=== PATIENT | female | born 1985 | race Caucasian/White ===

== ENCOUNTER 2019-06-13 10:12 | Outpatient (CLI) | payer OTHER, SELFPAY ==
--- NOTE | 2019-06-13 10:30 | EST_ITS ---
Patient Info Name: Gaby Mendoza Age: 34 years : 1985 Gender: Female Ht: 70 in Wt: 170 lbs BSA: 1.96 m2 Exam Date: 06/13/2019 11:15 AM Exam Location: [facility] Stress Patient Status: Outpatient Admit Date: 06/13/2019 Staff Ordering Physician: Kiara Cardenas Attending Provider: Kiara Cardenas Exercise Technologist: Bryanna Marin RDCS Exercise Physician: Uriah Schaffer DO Exam Type: CA stress test treadmill Study Info Indications R07.9 - Chest pain, unspecified A treadmill exercise stress test was performed. Summary 1. 1. Negative Pop exercise stress test for ischemic ST changes by ECG criteria. 2. 2. Good functional capacity, achieving 12 METs of workload. 3. 3. Appropriate HR response to exercise. 4. 4. Appropriate HR recovery at 1 minute post exercise. 5. 5. No imaging with stress testing. 6. 6. Patient informed of the above results. Protocol: Pop Stress ECG Details Stage: REST Duration (min): 4 min : 45 sec Speed (mph): 0.0 Grade (%): 0 HR (bpm): 93 SBP (mmHg): 136 DBP (mmHg): 82 METS: --- Stage: REST Duration (min): 11 min : 41 sec Speed (mph): 0.0 Grade (%): 0 HR (bpm): 91 SBP (mmHg): 136 DBP (mmHg): 82 METS: --- Stage: STAGE 1 Duration (min): 1 min : 0 sec Speed (mph): 1.7 Grade (%): 10 HR (bpm): 119 SBP (mmHg): 136 DBP (mmHg): 82 METS: --- Stage: STAGE 1 Duration (min): 2 min : 0 sec Speed (mph): 1.7 Grade (%): 10 HR (bpm): 123 SBP (mmHg): 136 DBP (mmHg): 82 METS: --- Stage: STAGE 1 Duration (min): 3 min : 0 sec Speed (mph): 1.7 Grade (%): 10 HR (bpm): 135 SBP (mmHg): 154 DBP (mmHg): 83 METS: --- Stage: STAGE 2 Duration (min): 1 min : 0 sec Speed (mph): 2.5 Grade (%): 12 HR (bpm): 134 SBP (mmHg): 154 DBP (mmHg): 83 METS: --- Stage: STAGE 2 Duration (min): 2 min : 0 sec Speed (mph): 2.5 Grade (%): 12 HR (bpm): 140 SBP (mmHg): 148 DBP (mmHg): 82 METS: --- Stage: STAGE 2 Duration (min): 3 min : 0 sec Speed (mph): 2.5 Grade (%): 12 HR (bpm): 144 SBP (mmHg): 148 DBP (mmHg): 82 METS: --- Stage: STAGE 3 Duration (min): 1 min : 0 sec Speed (mph): 3.4 Grade (%): 14 HR (bpm): 151 SBP (mmHg): 149 DBP (mmHg): 95 METS: --- Stage: STAGE 3 Duration (min): 2 min : 0 sec Speed (mph): 3.4 Grade (%): 14 HR (bpm): 158 SBP (mmHg): 149 DBP (mmHg): 95 METS: --- Stage: STAGE 3 Duration (min): 3 min : 0 sec Speed (mph): 3.4 Grade (%): 14 HR (bpm): 160 SBP (mmHg): 160 DBP (mmHg): 72 METS: --- Stage: STAGE 4 Duration (min): 1 min : 0 sec Speed (mph): 4.2 Grade (%): 16 HR (bpm): 172 SBP (mmHg): 160 DBP (mmHg): 72 METS: --- Stage: STAGE 4 Duration (min): 2 min : 0 sec Shasha
== END 2019-06-13 10:13 | disposition home or self-care (01) ==
PROVIDERS: PCP Family Medicine; Visit Provider Physician Assistant Medical
DX: R07.89 Other chest pain (principal)
CPT/HCPCS: 93017

== ENCOUNTER 2020-09-17 14:20 | Outpatient (CLI) | payer OTHER, SELFPAY ==
[2020-09-17 14:53] VITALS: BP 123/77; PULSE 99
[2020-09-17] MEDS: FLUCONAZOLE 150 MG TABLET PO (14:55)
[2020-09-17 15:16] LABS: Basophils Percent Auto 0.2 % (0.2-1.2); Eosinophils Absolute Auto 0.1 K/mm3 (0-0.3); Eosinophils Percent Auto 0.6 % (0-4.4); Hematocrit 32.5 % (37.0-47.0); Hemoglobin 10.5 g/dL (12.0-15.0); Immature Granulocyte Absolute 0.04 K/mm3 (0.00-0.031); Immature Granulocyte Percent A 0.4 % (0-0.5); Lymphocytes Percent Auto 20.4 % (18.3-44.2); Mean Corpuscular HGB Conc 32.3 g/dl (32-36); Mean Corpuscular Hemoglobin 29.3 pg (26-34); Mean Corpuscular Volume 90.8 fl (80-100); Monocytes Absolute Auto 0.7 K/mm3 (0.1-0.6); Monocytes Percent Auto 6.9 % (2.6-8.5); Neutrophils Percent Auto 71.5 % (45.5-73.1); Platelet Count Result 209 k/mm3 (150-375); Red Blood Count 3.58 M/mm3 (4.2-5.4); Red Cell Distribution Width 12.4 % (11.5-14.5); White Blood Count 9.8 K/mm3 (4.5-10.0)
[2020-09-17 15:27] LABS: Alanine Aminotransferase 15 U/L (4-35); Albumin Level 3.4 g/dL (3.5-5.1); Alkaline Phosphatase 166 U/L (38-126); Anion Gap 7 mmol/L (8-16); Aspartate Amino Transferase 27 U/L (14-36); Bilirubin,Total 0.5 mg/dL (0.2-1.3); Blood Urea Nitrogen 6 mg/dL (7-17); Calcium 8.5 mg/dL (8.4-10.2); Carbon Dioxide 21 mmol/L (22-30); Chloride 108 mmol/L (98-107); Estimated Glomerular Filt Rate > 60; Glucose 79 mg/dL (65-105); Potassium 3.8 mmol/L (3.4-5.0); Sodium 136 mmol/L (137-145); Uric Acid 3.6 mg/dL (2.5-7.5)
[2020-09-17 15:30] VITALS: BP 114/72; PULSE 90
== END 2020-09-17 15:42 | disposition home or self-care (01) ==
LOC: ANHOBOP 14:29 → ANHOBPP 14:32
PROVIDERS: Obstetrics & Gynecology; PCP Family Medicine; Visit Provider Obstetrics & Gynecology
DX: O13.3 Gestational [pregnancy-induced] hypertension without significant proteinuria, third trimester (principal); Z3A.40 40 weeks gestation of pregnancy
CPT/HCPCS: 36415; 59025; 80053; 84550; 85025; 99199; A9270

== ENCOUNTER 2020-10-01 05:55 | Inpatient (IN) | payer OTHER, SELFPAY ==
[2020-10-01] VITALS (90 sets, daily range): BP systolic 88–190; BP diastolic 16–128; PULSE 36–148; RESP 16; TEMP 36.3–36.9; O2SAT 79–100; BMI 30.2
--- OUTSIDE RECORDS SUMMARY | 2020-10-01 06:00 | XMS_ITS | Encounter Summary ---
:1985 Author Care Team Providers Name Role Phone Faustino Sherman MD Primary Care Provider [phone] Reason for Visit OB visit OB [id number] EDC 10/02/2020 LMP 12/26/2019 Assessment and Plan Assessment Note Patient is __29_weeks . Dis cussed plan. 1. Routine care Discussion Note: None recorded.Patient educational handouts: No information available. Plan of Care Reminders Provider Appointments None ? ? recorded. Lab None ? ? recorded. Referral None ? ? recorded. Procedures None ? ? recorded. Surgeries None ? ? recorded. Imaging None ? ? recorded. Medications Name Start Date ? ? ? Medications Administered None recorded. Vitals Height Weight BMI Blood Pressure 5 ft 10.5 in 195 lbs 27.6 kg/m2 128/72 mm[Hg] Results Lab Results None recorded. Allergies Code Code System Name Reaction Severity Onset NKDA ? ? ? Problems Name Status Onset Date Source ? Anxiety Active 02/27/2020 ? Depressive Disorder Active
--- OUTSIDE RECORDS SUMMARY | 2020-10-01 06:00 | XMS_ITS | Encounter Summary ---
:1985 Author Care Team Providers Name Role Phone Faustino Sherman MD Primary Care Provider [phone] Reason for Visit OB visit OB [id number] EDC 10/02/2020 LMP 12/26/2019 Assessment and Plan Assessment Note 35 weeks gestation Patient is __36_weeks . Discuss ed plan. 1. Routine care Discussion Note: None [...] BMI Blood Pressure 5 ft 10.5 in 205 lbs 29 kg/m2 132/80 mm[Hg] Results Lab Results None recorded. Allergies Code Code System Name Reaction Severity Onset NKDA ? ? ? Problems Name Status Onset Date Source ? Anxiety Active
--- OUTSIDE RECORDS SUMMARY | 2020-10-01 06:00 | XMS_ITS ---
:1985 Author Care Team Providers Name Role Phone DINORAH UPTON MD Primary Care Provider [phone] Allergies Code Code System Name Reaction Severity Status Onset NKDA ? Medications Name Status Start Date Stop Date ? ? Cytotec 200 mcg tablet Completed 06/11/2017 8 insert 4 by by vagina route all at once escitalopram 10 mg tablet Completed ? 2019 TK 1 T PO D Flagyl 500 mg tablet Completed 12/27/2018 04/23/2020 take 1 tablet by oral route every 12 hours Gianvi (28) 3 mg-0.02 mg tablet Completed 09/29/2013 11/11/2013 TAKE 1 TABLET BY ORAL ROUTE EVERY DAY Reclipsen (28) 0.15 mg-0.03 mg tablet Active 12/27/2018 Not available take 1 tablet by oral route every day Lomedia 24 Fe 1 mg-20 mcg (24)/75 mg (4) tablet Completed 11/11/2013 01/04/2017 take 1 tablet by oral route every day Active ? Not available Problems Name Status Onset Date Source ? Screening for Malignant Neoplasm of Unknown 11/04/2012 History Cervix Cytologic Finding Unknown 01/01/2013 History Adult Health Examination Unknown 11/11/2013 History Specialized Medical Examination Unknown 11/11/2013 History Test Negative Unknown 11/13/[address] Concept Unknown 11/17/2015 History Secondary Amenorrhea Unknown 05/25/2017 History Threatened Miscarriage Unknown 06/06/2017 History Missed Miscarriage Unknown 06/11/2017 History Gestation Less than 9 Weeks Unknown 06/13/2017 Hist ory
--- OUTSIDE RECORDS SUMMARY | 2020-10-01 06:00 | XMS_ITS | Encounter Summary ---
:1985 Author Care Team Providers Name Role Phone Faustino Sherman MD Primary Care Provider [phone] Reason for Visit OB visit Assessment and Plan 1. Elevated blood-pressure readi ng without diagnosis of hypertension 2. Routine care Discussion Note: None recorded.Patient educational [...] BMI Blood Pressure 5 ft 10.5 in 207 lbs 29.3 kg/m2 (1) 145/84 mm[H g] (2) 140/82 mm[Hg ] Results Lab Results None recorded. Allergies Code Code System Name Reaction Severity Onset NKDA ? ? ? Problems Name Status Onset Date Source ? Anxiety Active 02/27/2020 ? Depressive Disorder Active 02/27/2020 ?
--- OUTSIDE RECORDS SUMMARY | 2020-10-01 06:00 | XMS_ITS | Encounter Summary ---
:1985 Author Care Team Providers Name Role Phone Faustinojeff Sherman MD Primary Care Provider [phone] Reason for Visit OB visit OB [id number] EDC 10/02/2020 LMP 12/26/2019 Assessment and Plan Assessment Note Patient is 36___weeks . Dis cussed plan. 1. Routine care [...] ft 10.5 in 207 lbs 29.3 kg/m2 127/78 mm[Hg] Results Lab Results None recorded. Allergies Code Code System Name Reaction Severity Onset NKDA ? ? ? Problems Name Status Onset Date Source ? Anxiety Active 02/27/2020 ? Depressive Disorder Active
--- OUTSIDE RECORDS SUMMARY | 2020-10-01 06:00 | XMS_ITS | Encounter Summary ---
:1985 Author Care Team Providers Name Role Phone Faustino Sherman MD Primary Care Provider [phone] Reason for Visit None recorded. Assessment and Plan 1. Uterine size for dates discre pancy ? US, obstetric, follow-up Discussion Note: None recorded.Patient educational handouts: No information available. Plan of Care Reminders Provider Appointments None ? ? recorded. Lab None ? ? recorded. Referral None ? ? recorded. Procedures None ? ? recorded. Surgeries None ? ? recorded. Imaging US, 08/20/2020 [facility], Follow-up Medications Name Start Date ? ? ? Medications Administered None recorded. Vitals None recorded. Results Lab Results None recorded. Allergies Code Code System Name Reaction Severity Onset NKDA ? ? ? Problems Name Status Onset Date Source ? Anxiety Active 02/27/2020 ? Depressive Disorder Active 02/27/2020 ? Active 03/26/2020 ? Procedures Date Name Performed by ?
--- OUTSIDE RECORDS SUMMARY | 2020-10-01 06:00 | XMS_ITS | Encounter Summary ---
:1985 Author Care Team Providers Name Role Phone Faustinojeff Sherman MD Primary Care Provider [phone] Reason for Visit OB visit OB [id number] EDC 10/02/2020 LMP 12/26/2019 Assessment and Plan Assessment Note Patient is __31_weeks . Dis cussed plan. 1. Routine care [...] BMI Blood Pressure 5 ft 10.5 in 199 lbs 28.1 kg/m2 122/80 mm[Hg] Results Lab Results None recorded. Allergies Code Code System Name Reaction Severity Onset NKDA ? ? ? Problems Name Status Onset Date Source ? Anxiety Active 02/27/2020 ? Depressive Disorder Active
[2020-10-01 06:59] LABS: Basophils Percent Auto 0.3 % (0.2-1.2); Eosinophils Absolute Auto 0.1 K/mm3 (0-0.3); Eosinophils Percent Auto 0.8 % (0-4.4); Hematocrit 40.9 % (37.0-47.0); Immature Granulocyte Absolute 0.03 K/mm3 (0.00-0.031); Immature Granulocyte Percent A 0.3 % (0-0.5); Lymphocytes Absolute Auto 2.12 K/mm3 (0.9-3.2); Lymphocytes Percent Auto 24.7 % (18.3-44.2); Mean Corpuscular HGB Conc 31.8 g/dl (32-36); Mean Corpuscular Hemoglobin 28.7 pg (26-34); Mean Corpuscular Volume 90.3 fl (80-100); Monocytes Absolute Auto 0.6 K/mm3 (0.1-0.6); Monocytes Percent Auto 7.3 % (2.6-8.5); Neutrophils Absolute Auto 5.7 K/mm3 (1.3-6.7); Neutrophils Percent Auto 66.6 % (45.5-73.1); Platelet Count Result 226 k/mm3 (150-375); Red Blood Count 4.53 M/mm3 (4.2-5.4); Red Cell Distribution Width 12.7 % (11.5-14.5); White Blood Count 8.6 K/mm3 (4.5-10.0)
[2020-10-01] MEDS: AMPICILLIN 2 GM/NS 100 ML 2 GM/100 ML BAG IVPB (07:21)
[2020-10-01] MEDS: OXYTOCIN 30 UNITS/NS 500 ML 30 UNITS/500 ML BAG IV CONT (07:22)
[2020-10-01] MEDS: LACTATED RINGERS 1,000 ML 125 ML IV CONT ×2 (07:22→14:51)
--- NOTE | 2020-10-01 07:22 | P.PNAN_ITS ---
Anes - Eval Pre Procedure Procedure: labor pain management Date/Time: 10/01/20 07:22 Surgeon: Johana Preop Diagnosis: Pain during labor Pre Op Diagnosis: IOL Patient Data Age: 35 Gender: F Height: Weight: Last Vital Signs Pulse 98 10/01/20 07:15 BP 117/76 10/01/20 07:15 Allergies Allergy/AdvReac Type Severity Reaction Status Date / Time No Known Allergies Allergy Verified 06/06/19 09:04 Home Medications Medication Instructions Recorded Confirmed Type escitalopram oxalate 10 mg tablet 10 mg PO DAILY #30 tablet 01/19/20 Rx Laboratory Tests 10/01/20 10/01/20 06:51 06:51 WBC 8.6 K/mm3 K/mm3 (4.5-10.0) RBC 4.53 M/mm3 M/mm3 (4.2-5.4) Hgb 13.0 g/dL g/dL (12.0-15.0) Hct 40.9 % % (37.0-47.0) MCV 90.3 fl fl (80-100) MCH 28.7 pg pg (26-34) MCHC 31.8 g/dl L g/dl (32-36) RDW 12.7 % % (11.5-14.5) Plt Count 226 k/mm3 k/mm3 (150-375) MPV 11.0 fl H fl (7.4-10.4) Immature Gran % (Auto) 0.3 % % (0-0.5) Neut % (Auto) 66.6 % % (45.5-73.1) Lymph % (Auto) 24.7 % % (18.3-44.2) Garvin % (Auto) 7.3 % % (2.6-8.5) Eos % (Auto) 0.8 % % (0-4.4) Baso % (Auto) 0.3 % % (0.2-1.2) Lymph # (Auto) 2.12 K/mm3 K/mm3 (0.9-3.2) Garvin # (Auto) 0.6 K/mm3 K/mm3 (0.1-0.6) Eos # (Auto) 0.1 K/mm3 K/mm3 (0-0.3) Baso # (Auto) 0.0 K/mm3 K/mm3 (0.0-0.1) Abs Immat Gran (auto) 0.03 K/mm3 K/mm3 (0.00-0.031) Absolute Neuts (auto) 5.7 K/mm3 K/mm3 (1.3-6.7) Absolute Nucleated RBC 0.0 K/mm3 K/mm3 (0.0-0.012) Nucleated RBC % 0.0 % % (0.0-0.2) RPR Pending Patient hx anesthesia problems: none Family hx anesthesia problems: none [facility] Past Medical History Medical History (Updated 10/01/20 @ 07:25 by Briseyda Larkin CRNA) Pain during labor Family History Family History (Updated 09/11/20 @ 13:05 by Violette Delgadillo RN) Other No pertinent family history Social History Social History Smoking status: Never smoker Alcohol intake: current Substance use: never Gender identity (if verbalized by the patient): Female Sexual Orientation (if Verbalized by the Patient): Straight or Heterosexual Spiritual care concerns: No Exam Day of Procedure 10/01/20 07:22
--- NOTE | 2020-10-01 07:28 | WPDOBADMIT ---
Obstetrics - Admit Note Admission Note: record reviewed. No pertinent additions to the history and/or any subsequent changes in the physical findings that are not consistent with the expected course of the were found. IOL at 39.6 weeks, GBS+, SVE 1-2/60/-2, AROM small amount of clear odorless fluid Additions to the history and/or subsequent changes in the physical findings follow. None.
[2020-10-01 08:24] LABS: Rapid Plasma Reagin Non-Reactive (NonReactive)
[2020-10-01] MEDS: AMPICILLIN 1 GM/NS 50 ML 1 GM/50 ML BAG IVPB ×2 (11:41→15:38)
[2020-10-01] MEDS: ONDANSETRON INJ 4 MG/2 ML VIAL IV PUSH (15:42)
[2020-10-01] MEDS: SODIUM CHLORIDE 0.9% IV 1,000 ML 150 ML I-UTERINE (16:17)
--- NOTE | 2020-10-01 17:16 | PM.OBPRVD ---
OB - Delivery Note Procedure Delivery date: 10/01/20 Procedure: vaginal delivery Intrapartal events: None Induction method: AROM and per pitocin protocol Delivery monitor: external FHT and external uterine Route of delivery: Laceration Description: Perineal - 2nd Degree Delivery repair: vicryl Specimen: No Quantitative Blood Loss (ml): 135 Anesthesia type: Epidural Disposition: floor [facility] Date of : 10/01/20 Time of : 17:01 Weeks of gestation at delivery: 39 Weight (pounds): 8 Weight (ounces): 6 presentation: vertex position: Left Occiput Transverse Placenta delivery description: Spontaneous cord vessel description: 3 Vessels, Clamped/Cut and Delayed Cord Clamping score one minute: 9 score five minutes: 9 Narrative: mother and baby in stable condition, skin to skin
[2020-10-01] MEDS: DIBUCAINE 1% OINTMENT 30 GM TUBE 1 APPLIC TOPICAL (17:42)
[2020-10-01] MEDS: OXYTOCIN 30 UNITS/NS 500 ML 30 UNITS/500 ML BAG 125 UNITS IV CONT (17:42)
[2020-10-01] MEDS: WITCH HAZEL 40 PADS 1 PAD TOPICAL (17:44)
--- NOTE | 2020-10-01 21:49 | PC.NURSE ---
This patient, Gaby Mendoza, was received from Labor and Delivery on 10/01/20 at 2045. Patient/family oriented to unit policies and routines
[2020-10-02] VITALS (7 sets, daily range): BP systolic 101–116; BP diastolic 62–75; PULSE 64–99; RESP 16–18; TEMP 36.2–36.7; O2SAT 96–100
[2020-10-02] MEDS: IBUPROFEN 600 MG TABLET PO ×4 (03:58→23:40)
[2020-10-02 05:19] LABS: Hematocrit 33.5 % (37.0-47.0); Hemoglobin 10.9 g/dL (12.0-15.0)
--- NOTE | 2020-10-02 10:09 | PM.OBPNVD ---
OB - PN: Subj Subjective Date/time seen: 10/02/20 10:09 Patient comments: no complaints baby status: doing well OB - PN: Obj Data Labs CBC & Chem 7: 10/02/20 04:02 Labs: Laboratory Results - last 24 hr 10/02/20 04:02 Hgb 10.9 L Hct 33.5 L OB - PN A/P Plan day: 1 Plan: routine care Time Spent With Patient Time: Total time spent is greater than 50% in coordination of care (as documented) at patient's floor/unit and/or counseling patient: Time with patient: less than 15 minutes Review of Systems Review of Systems: All systems reviewed & are unremarkable except as noted in HPI and below Exam Narrative: Exam Narrative: Fundus firm and vaginal flow controlled. No lower ext redness, warmth, or edema. Negative homans. Const: General: comfortable Chest: Breast/axilla inspection: normal inspection of the breasts Resp: Effort & Inspection: normal respiratory effort Cardio: Rate: regular rate GI: GI Palp: Yes Soft to palpation Psych: Appearance: grossly normal Affect: normal affect Attitude: cooperative Thought content: Yes Normal thought content present Judgement: Good judgement present (Psych)
[2020-10-02] MEDS: MULTIVIT/MIN/PREN/FOL AC/IRON TABLET 1 TAB PO (11:14)
[2020-10-02] MEDS: DOCUSATE SODIUM 100 MG CAPSULE PO ×2 (11:16→23:40)
--- NOTE | 2020-10-02 13:31 | WPDANLDPN2 ---
Anes-Prog Note L&D Date/Time: 10/02/20 13:31 Comfortable throughout: section Neuraxial method: spinal Epidural/Spinal procedure site: clean & non-tender Neuro status: Neuro function grossly intact. Cardiovascular status: normal Respiratory status: normal Airway patency: baseline Mental status: baseline Post-Op hydration status: normal Vital Signs: Last Vital Signs Temp 36.4 C 10/02/20 12:31 Pulse 95 10/02/20 12:31 Resp 16 10/02/20 12:31 BP 111/69 10/02/20 12:31 Pulse Ox 96 10/02/20 12:31 Pain score (VAS): 0 I/O: Intake & Output 10/01/20 10/02/20 10/02/20 23:59 07:59 15:59 Intake Total 1350 Output Total 78 Balance 1272 Post-procedural complaints: none Patient feedback: Patient satisfied with anesthetic care.
--- NOTE | 2020-10-02 13:32 | WPDANLDNPN2 ---
Anes-Prog Note L&D-Neuraxial Date/Time: 10/02/20 13:32 Neuraxial medications: intrathecal PF morphine Opiod-related complaints: none Patient feedback: Patient satisfied with post-operative pain management.
--- NOTE | 2020-10-02 13:36 | WPDANLDPN2 ---
Anes-Prog Note L&D Date/Time: 10/02/20 13:36 Comfortable throughout: labor and delivery Neuraxial method: epidural Epidural/Spinal procedure site: clean & non-tender Neuro status: Neuro function grossly intact. Cardiovascular status: normal Respiratory status: normal Airway patency: baseline Mental status: baseline Post-Op hydration status: normal Vital Signs: Last Vital Signs Temp 36.4 C 10/02/20 12:31 Pulse 95 10/02/20 12:31 Resp 16 10/02/20 12:31 BP 111/69 10/02/20 12:31 Pulse Ox 96 10/02/20 12:31 Pain score (VAS): 0 I/O: Intake & Output 10/01/20 10/02/20 10/02/20 23:59 07:59 15:59 Intake Total 1350 Output Total 78 Balance 1272 Post-procedural complaints: none Patient feedback: Patient satisfied with anesthetic care.
--- NOTE | 2020-10-03 09:28 | PM.OBPNVD ---
OB - PN: Subj Subjective Date/time seen: 10/03/20 09:28 Patient comments: no complaints baby status: doing well OB - PN: Obj Data Labs CBC & Chem 7: 10/02/20 04:02 OB - PN A/P Plan day: 2 Plan: routine care and discharge home (F/U in 4 weeks) Time Spent With Patient Time: Total time spent is greater than 50% in coordination of care (as documented) at patient's floor/unit and/or counseling patient: Time with patient: less than 15 minutes Review of Systems Review of Systems: All systems reviewed & are unremarkable except as noted in HPI and below Exam Narrative: Exam Narrative: Fundus firm and vaginal flow controlled. No lower ext redness, warmth, or edema. Negative homans. Const: General: comfortable Chest: Breast/axilla inspection: normal inspection of the breasts Resp: Effort & Inspection: normal respiratory effort Cardio: Rate: regular rate GI: GI Palp: Yes Soft to palpation Psych: Appearance: grossly normal Affect: normal affect Attitude: cooperative Thought content: Yes Normal thought content present Judgement: Good judgement present (Psych)
[2020-10-03 09:30] VITALS: BP 112/64; PULSE 81; PULSE 99; RESP 18; RESP 20; TEMP 36.4; O2SAT 95; O2SAT 98
[2020-10-03] MEDS: IBUPROFEN 600 MG TABLET PO (09:54)
[2020-10-03] MEDS: MULTIVIT/MIN/PREN/FOL AC/IRON TABLET 1 TAB PO (09:55)
[2020-10-03] MEDS: DOCUSATE SODIUM 100 MG CAPSULE PO (09:55)
[2020-10-05 10:49] VITALS: BP 126/79; PULSE 92; RESP 16; TEMP 36.6; O2SAT 100
--- NOTE | 2020-10-25 12:40 | PM.OBDSVD ---
DS: Admitting Diagnosis Admitting Diagnosis Admitting Diagnosis: Labor OB - DS: Summary OB Procedures : None OB Procedures Intrapartum: Spontaneous Vag Delivery OB Procedures: : None Time Spent with Patient Time attestation: Total time spent providing and/or coordinating discharge services: Discharge Plan Discharge Attending physician on discharge: Buffy Palencia Consulting providers: Buffy Palencia ; Jade Quesada Discharging Clinician: Jade Quesada Patient Disposition: Home, Self-Care Activity: may shower, no straining and pelvic rest Diet: regular Discharge Instructions: Education: Mom and Baby Guide Given to: Mother Follow-Up: Call your delivering provider's office for an appointment to be seen in: 4 weeks Mom and baby should come to the [facility] for the follow-up appointment. Appointment Date/Time: October 05, 2020 at 11:00 am What to expect at your follow-up visit: Blood Pressure Check Physical Assessment Call [phone] if you are unable to keep your appointment time. EPISIOTOMY/PERINEAL CARE: * Until bleeding stops, use your juan pablo bottle after urinating * Change your pad frequently throughout the day * No tub baths until seen by your physician - You may shower ACTIVITY: * Rest as much as possible. * Do not exercise or lift anything heavier than your baby (such as laundry or other children.) * Avoid stairs or driving as much as possible. * Do not put anything into the vagina. No douching, tampons, or sexual activity until seen by physician. NOTIFY PHYSICIAN IF YOU HAVE ANY QUESTIONS OR IF ANY OF THE FOLLOWING SYMPTOMS OCCUR: * If your vaginal area becomes red, swollen, or more painful than what you have experienced in the hospital. * If your vaginal bleeding becomes foul smelling. * If your vaginal bleeding becomes more heavy than a period or if your bleeding changes from pink to bright red. However, you may pass an occasional walnut-sized clot once or twice for the first week . * If you experience a sharp, shooting pain in your calves. * If you discover a hard, reddened area on your breast or if you experience flu-like symptoms. DIET: * Eat regular, well-balanced meals. * Drink plenty of fluids daily. Patient Instructions: Vaginal Delivery (DC) Stand Alone Forms: General Discharge Information Follow-up/Referrals: Jade Quesada CNM [Certified Nurse Technical Communicator] - Discharge Medications: Continued escitalopram oxalate [Lexapro] 10 mg tablet 10 mg PO DAILY Qty: 30 RF: 3 Date of admission: 10/01/20 05:55 Primary Care Provider: Faustino Sherman Admitting Provider: Johanna Vaughn Attending physician on admission: Johanna Vaughn Condition: Stable
== END 2020-10-03 13:25 | disposition home or self-care (01) | DRG 807 ==
LOC: ANHLDR 05:59 → ANHOB2 21:56
PROVIDERS: Advanced Practice Midwife; Admitting Provider Obstetrics & Gynecology; PCP Family Medicine; Visit Provider Obstetrics & Gynecology
DX: O99.824 Streptococcus B carrier state complicating childbirth (principal); Z37.0 Single live birth; Z3A.39 39 weeks gestation of pregnancy; O70.1 Second degree perineal laceration during delivery; O99.344 Other mental disorders complicating childbirth; F41.9 Anxiety disorder, unspecified; F32.9 Major depressive disorder, single episode, unspecified
CPT/HCPCS: 36415; 85014; 85018; 85025; 86592; 86850; 86900; 86901; A9270; J0290; J2405; J2590; J2795; J7030; J7120

== ENCOUNTER 2024-04-07 13:24 | Outpatient (CLI) | payer OTHER, SELFPAY ==
--- NOTE | ~2024-04-07 | XR_ITS ---
3 VIEWS LUMBAR SPINE Ordering provider: Sujatha Rivera APRN History: . M54.50 - Low back pain, unspecified . Comparison: None. FINDINGS: VERTEBRAL BODIES: No visible fracture or subluxation. DISK SPACES: Normal. SOFT TISSUES: Normal. IMPRESSION: No acute osseous abnormality lumbar spine. Reviewed, dictated and finalized at location A. OID ARCHITECT
--- NOTE | ~2024-04-07 | XR_ITS ---
XR hip RT min 2V Ordering provider: Sujatha Rivera APRN History: . M54.50 - Low back pain, unspecified . Comparison: None. FINDINGS: BONES: No acute fracture or dislocation. HIP JOINT SPACES: Normal. PUBIC SYMPHYSIS: Normal. SOFT TISSUES: Normal. IMPRESSION: No acute osseous abnormality pelvis and right hip. Reviewed, dictated and finalized at location A. [employer] INST[employer]ER
== END 2024-04-07 13:25 | disposition home or self-care (01) ==
LOC: GOSHIMG 13:26
PROVIDERS: PCP Nurse Practitioner Adult Health; Visit Provider Nurse Practitioner Adult Health
DX: M54.50 Low back pain, unspecified (principal)
CPT/HCPCS: 72100; 73502

== ENCOUNTER 2024-05-07 14:37 | Outpatient (CLI) | payer OTHER, SELFPAY ==
--- OUTSIDE RECORDS SUMMARY | 2024-05-09 02:20 | XMS_ITS | Data Portability ---
Author Organization [facility] [place] Address [address] [place] [address] Care Team Providers Care Equipment Records Supervisor Name Role Phone DINORAH UPTON Primary Care Provider Assessment Encounter Date Assessment Date Assessment LastModified by Organization Details LastModified Time 09/24/2020 09/24/2020 Patient is _38__weeks . Discussed plan. Not available 09/24/2020 16:18:27 10/27/2020 10/27/2020 normal pp exam # 4 samples loloestrin to start when desires, ocp consent reviewed se risks, normal pp exam f/u nov for wwe Not available 10/27/2020 11:37:28 04/22/2021 04/22/2021 Annual gynecological exam performed. Patient will come back in a year unless there are new symptoms. Suggest Calcium with Vitamin D if not eating in diet. Patient advised to get annual flu shot. Recommend yearly physicals and preform monthly breast exams. Genetic testing is available for patients with family history of cancer. Engage in safe sexual practices, use condoms. Encouraged to have daily exercise. Avoid tobacco and illicit drugs, moderation of alcohol. If BMI greater than 25 dietary consult advised. If you have any questions please call or email. Not available 04/22/2021 16:31:43 08/04/2022 08/04/2022 Annual gynecological exam performed. Patient will come back in a year unless there are new symptoms. Suggest Calcium with Vitamin D if not eating in diet. Patient advised to get annual flu shot. Recommend yearly physicals and preform monthly breast exams. Genetic testing is available for patients with family history of cancer. Engage in safe sexual practices, use condoms. Encouraged to have daily exercise. Avoid tobacco and illicit drugs, moderation of alcohol. If BMI greater than 25 dietary consult advised. If you have any questions please call or email. Not available 08/04/2022 10:45:36 11/09/2023 11/09/2023 Annual gynecological exam performed. Patient will come back in a year unless there are new symptoms. Suggested Calcium with Vitamin D 1200-1500mg daily. Patient advised to get an annual flu shot in the fall and she could obtain at [facility] or [facility] care clinic. Also to obtain TDap vaccination if you have not had one in the last 10 years. Recommend yearly mammograms. Encouraged monthly self breast exams. Encourage safe sexual practices, to use condoms and limit partners if not already in a monogamous relationship. Engage in daily exercise of low impact aerobic exercise 45-60 minutes 4-5 times weekly. Avoid tobacco and illicit drugs as well as using moderation with alcohol intake less than 1-2 8 oz beverages daily. This lifestyle behavior pattern will lead to less health conditions and longer life span. If BMI greater than 25 weight watchers or dietary consult advised. All questions have been answered. Patient appears to understand information, but if you have any questions please call or respond to this email. Not available 11/09/2023 16:20:48 Plan of Treatment Reminders Order Date Submit Date Provider Last Modified By Organization Details Last Modified Time Details Appointments None record ed. Lab None record ed. Referral None record ed. Procedures None record ed. Surgeries None record ed. Imaging None record ed. Medication Orders None record ed. Patient TargetsNo targets recorded. Patient InstructionsNo instructions recorded. Reason for Referral None Reported. Results Created Date Observation Date Name Description Value Unit Range Abnormal Flag Note LastModifiedBy Organization Detail LastModifiedTime 09/04/19 21 09/03/2020 strep tococ cus group B, cultu re, unspe cifie d speci men result report SEE RESULT S BELOW abnormal Test: Cultu re: Group B Strep Scree n - Vagin al/Re ctal Speci men Sourc e: Vagin a/Rec selene Speci men Type: Vagin al/Re ctal Speci men Date: 2020 4:02 PM Resul t Date: 2020 6:46 PM Resul t Statu s: Final resul t Abnor mal: Yes Resul herman Lab: [facility] [address] [facility] [address] Tel: CULTU RE ----- ----- ----- --- Posit chiki for Strep tococ cus agala ctiae (Grou p B) (Abno rmal) Strep tococ cus agala ctiae (Beta strep Group B Strep ) remai ns unive rsall y susce ptibl e to penic illin , cefaz ashlie and vanco mycin . If clind amyci n is being consi dered for intra partu m proph ylaxi s, pleas e conta ct the lab and reque st susce ptibi lity testi ng. Not Available [facility] (Lab) [address], [place], [address], 09/10/2020 19:32:07 04/22/19 22 04/22/2021 IMAGE GUIDE D PAP AND HPV REGAR DLESS image guided Pap, HPV regardless of Pap result SEE RESULT S BELOW CASE REPOR T: Cytol ogy Gynec ologi hamlet Repor t Case: [id number] Autho paola g Provi zaid: Buffy Conteh, PAYTON Allen cted: 04/22 1526 Order ing Locat ion: [place] [facility] Recei michael: 04/23 0104 First Scree n: Janae Johnson, CT Speci men: Scree bassem Pap - Image d, Cervi x STATE MENT OF ADEQU ACY: Satis facto ry for evalu ation Trans forma tion zone compo nent prese nt FINAL DIAGN OSIS: Negat chiki for Intra epith elial Lesio n or Christine bansal (NIL) . Elect emir malhotra grace d by Janae Johnson, CT on 2021 at 7:03 AM ----- ----- ----- ----- ----- ----- ----- ----- ----- ----- ----- ----- ----- ----- ----- ----- ----- ---- HPV RESUL TS: HPV mRNA E6/E7 : No HPV mRNA Detec julita NOTE: This high risk HPV mRNA assay detec ts fourt een high- risk HPV types (16, 18, 31, 33, 35, 39, 45, 51, 52, 56, 58, 59, 66, 68) witho ut diffe renti ation . COMME NT: Note: This speci men was revie wed by a Cytot echno logis t and/o r Patho logis t (as indic ated in this repor t) after evalu ation using the Thinp rep Imagi ng Syste m. CLINI HAMLET INFOR MATIO N: Menst rual Statu s: LMP (if appli cable ): Clini hamlet Histo ry/Pr eviou s Pap: Type of Neopl jerry (if appli cable ): Signi fican t Clini hamlet Findi ngs: Other Histo ry: Hormo emma (if appli cable ): PAP EDUCA MELVIN L NOTE: The Pap Test is a scree bassem test with an inher ent false negat chiki rate. Liqui d-bas ed sampl ing may decre ase, but will not elimi srinivas, false negat chiki resul ts. A negat chiki resul t does not precl ude the prese nce and/o r devel opmen t of disea se, since the prese nce of abnor mal cells in the sampl e depen ds on the locat ion of the lesio n and sampl ing techn ique. Rosana nued regul ar scree bassem is the best metho d of cance r preve ntion . If repor julita cytol ogic findi ng do not corre late with physi hamlet and/o r histo rical findi ngs, furth er inves tigat ion is recom brody d, as clini jey vila nted. Not Available [facility] (Lab) [address], [place], [address], 04/28/2021 08:06:47 Result Notes None recorded. Problems Name Problem SNOMED Code Status Onset Date Resolution Date Notes Provider Name and Address Organization Details Recorded Time Anxiety 73917047 Active 2019 Cheyanne Hdz [facility], [facility] 0 15:47:16 Depressi ve disorder 85062885 Active 2019 Cheyanne Hdz [facility], [facility] 0 15:47:21 Pregnanc y 83625794 Completed 201910/07/2020 Felicia Hinton [facility], [facility] 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 1 16:32:09 Adult health examinat ion Completed 201304/22/2020 ROUTINE MEDICAL EXAM;Rec orded Elsewher e: No Locat ion: [facility] S ource: EHR Tile Presser fly: N Robinati ce ID: [id number] Art lable Time: 10:45:00 AM [facility] 1 16:33:02 Single live [id number] Completed 201804/22/2020 Single live ;Re corded Elsewher e: No Locat ion: [facility] S ource: EHR Tile Presser fly: N Robinati ce ID: [id number] Art lable Time: 09:00:00 AM [facility] 1 16:32:17 Pregnanc y, childbir th and puerperi um finding Completed 201704/22/2020 Encntr for suprvsn of normal first preg, second trimeste r;Record ed Elsewher e: No Locat ion: Bharathi cuellar [facility] S ource: EHR Tile Presser fly: N Practi ce ID: [id number] Art lable Time: 05:30:00 PM Rachelle Steinizzle [facility], [facility] 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 16:32:07 Normal pregnanc y in [place] re[place] [id number] Completed 201804/23/2020 Encounte r for supervis ion of other normal pregnanc y, 3rd trimeste r;Record ed Elsewher e: No Locat ion: [facility] S ource: EHR Tile Presser fly: N Practi ce ID: [id number] Art lable Time: 01:30:00 PM Cheyanne Hdz [facility], [facility] 16:21:44 Pregnanc y detectio n examinat ion Completed 201704/22/2020 Encounte r for pregnanc y test, result positive ;Recorde d Elsewher e: No Locat ion: Mary Lou alisa [facility] S ource: EHR Tile Presser fly: N Practi ce ID: [id number] Art lable Time: 05:45:00 PM Rachelle Steinizzle alan, [facility] 16:32:[address] Concept Completed 201804/22/2020 Encntr for routine child health exam w/o abnormal findings ;Recorde d Elsewher e: No Locat ion: Bharathi cuellar [facility] S ource: EHR Tile Presser fly: N Practi ce ID: [id number] Art lable Time: 08:30:00 AM Britlola Bauerle null, [facility] 1 16:32:06 Missed miscarri age 02737299 Completed 201704/22/2020 Missed ;Recorde d Elsewher e: No Locat ion: [facility] S ource: EHR Tile Presser fly: N Veronica ce ID: [id number] Art lable Time: 01:15:00 PM Rachelle phillips, [facility] 16:31:58 Hemorrha gic complica tion of pregnanc y [id number] Completed 201704/22/2020 Antepart um hemorrha ge, unspecif ied, second trimeste r;Record ed Elsewher e: No Locat ion: [facility] S ource: EHR Tile Presser fly: N Veronica ce ID: [id number] Art lable Time: 05:00:00 PM Rachelle Suarez [facility], [facility] 16:31:55 Secondar y amenorrh ea [id number] Completed 201704/22/2020 Secondar y amenorrh ea;Recor ded Elsewher e: No [facility]ce: EHR Tile Presser fly: N Veronica ce ID: [id number] Art lable Time: 02:15:00 PM Rachelle phillips, [facility] 16:32:41 Uterine size for dates discrepa ncy Completed 201804/22/2020 Uterine size-kun e discrepa ncy, third trimeste r;Record ed Elsewher e: No [facility] S ource: EHR Tile Presser fly: N Robinati ce ID: [id number] Art lable Time: 09:30:00 AM Rachelle phillips, [facility] 1 16:32:12 Pregnanc y, childbir th and puerperi um finding Completed 201804/22/2020 Encntr for suprvsn of normal first preg, third trimeste r;Record ed Elsewher e: No [facility]: [facility] Tile Presser fly: N Robinati ce ID: [id number] Art lable Time: 01:30:00 PM Rachelle Suarez [facility], [facility] 16:32:45 Pregnanc y test negative [id number] Completed 201404/22/2020 Pregnanc y examinat ion or test, negative result;R ecorded Elsewher e: No Locat ion: [facility] S ource: EHR Tile Presser fly: N Robinati ce ID: [id number] Art lable Time: 09:00:00 AM Rachelle Suarez [facility], [facility] 16:32:47 Screenin g for malignan t neoplasm of cervix Completed 201204/22/2020 Screenin g for malignan t neoplasm s of the cervix;R ecorded Elsewher e: No Locat ion: [facility] S ource: EHR Tile Presser fly: N Veronica ce ID: [id number] Art lable Time: 12:00:00 PM [facility] 16:33:11 Gestatio n period, 22 weeks [id number] Completed 201704/22/2020 22 weeks gestatio n of pregnanc y;Record ed Elsewher e: No Locat ion: [facility] S ource: EHR Tile Presser fly: N Veronica ce ID: [id number] Art lable Time: 05:00:00 PM Rachelle Suarez [facility], [facility] 16:31:49 Rubella screenin g status [id number] Completed 201704/22/2020 Encounte r for antenata l screenin g, unspecif ied;Jose rded Elsewher e: No Locat ion: [facility] S ource: EHR Tile Presser fly: N Veronica ce ID: [id number] Art lable Time: 05:30:00 PM Rachelle phillips, [facility] 16:32:[address] Concept Completed 201704/22/2020 Maternal care for oth problems , first trimeste r, unsp;Rec orded Elsewher e: No Locat ion: Bharathi cuellar [facility] S ource: EHR Tile Presser fly: N Veronica ce ID: [id number] Art lable Time: 05:00:00 PM Rachelle phillips, [facility] 16:32:03 Antenata l screenin g for malforma tion Completed 201704/22/2020 Encounte r for antenata l screenin g for malforma tions;Re corded Elsewher e: No Locat ion: Bharathi cuellar [facility] S ource: EHR Tile Presser fly: N Veronica ce ID: [id number] Art lable Time: 01:00:00 PM Rachelle Suarez [facility], [facility] 16:33:[address] Concept Completed 201504/22/2020 Encntr for general adult medical exam w/o abnormal findings ;Recorde d Elsewher e: No [facility] S ource: EHR Tile Presser fly: N Veronica ce ID: [id number] Art lable Time: 08:30:00 AM Rachelle Suarez [facility], [facility] 16:32:05 Gestatio n period, 8 weeks [id number] Completed 201704/22/2020 8 weeks gestatio n of pregnanc y;Record ed Elsewher e: No [facility]: EHR Tile Presser fly: N Veronica ce ID: [id number] Art lable Time: 01:30:00 PM Rachelle Suarez [facility], [facility] 16:31:53 Gestatio n less than 9 weeks [id number] Completed 201704/22/2020 Less than 8 weeks gestatio n of pregnanc y;Record ed Elsewher e: No Locat ion: Bharathi cuellar [facility] S ource: EHR Tile Presser fly: N Veronica ce ID: [id number] Art lable Time: 01:00:00 PM Rachelle Suarez [facility], [facility] 16:31:46 Gestatio n period, 12 weeks [id number] Completed 201704/22/2020 12 weeks gestatio n of pregnanc y;Record ed Elsewher e: No Locat ion: Bharathi cuellar [facility] S ource: EHR Tile Presser fly: N Veronica ce ID: [id number] Art lable Time: 05:00:00 PM Rachelle Suarez [facility], [facility] 16:31:47 Cytologi c finding [id number] Completed 201204/22/2020 Pap Abnormal LGSIL;Pr actice ID: 0001 Rachelle Suarez [facility], [facility] 16:31:43 Gestatio n period, 40 weeks [id number] Completed 201804/22/2020 40 weeks gestatio n of pregnanc y;Record ed Elsewher e: No Locat ion: Bharathi [facility] S ource: EHR Tile Presser fly: N Veronica ce ID: [id number] Art lable Time: 09:30:00 AM Rachelle Bauerle [facility], [facility] 16:31:52 Threaten ed miscarri age [id number] Completed 201704/22/2020 Threaten ed ;Recorde d Elsewher e: No [facility] S [facility]ce: EHR Tile Presser fly: Morgan Martin ce ID: [id number] Art lable Time: 01:30:00 PM Rebeccalola Steinizzle [facility], [facility] 16:32:20 Gestatio n period, 30 weeks [id number] Completed 201704/22/2020 30 weeks gestatio n of pregnanc y;Record ed Elsewher e: No Locat ion: Bharathi cuellar [facility] S ource: EHR Tile Presser fly: N Practi ce ID: [id number] Art lable Time: 05:15:00 PM [facility] 16:31:50 Antenata l screenin g Completed 201704/22/2020 Encounte r for other specifie d antenata l screenin g;Practi ce ID: 0001 [facility] 16:33:04 Term pregnanc y delivere d [id number] Completed 201804/22/2020 Encounte r for full-ter m uncompli cated delivery ;Practic e ID: 0001 [facility] 16:32:14 Problem Notes None recorded. Procedures Surgical History Date Name Laterality Status Provider Name and Address Organization Details Recorded Time 3 Date of Last Pap Smear completed [facility] 08/07/2022 11:39:33 8 Dilation and Curettage completed [facility] 02/27/2020 18:07:25 3 Colposcopy completed [facility] 10/30/2023 19:14:12 3 Colposcopy completed [facility] 10/30/2023 19:15:33 0 Unlisted px femur/knee completed [facility] 03/26/2020 15:47:42 1 hernia repair completed [facility] 03/29/2020 10:28:50 Imaging Results None recorded. Procedure Notes None recorded. Medical Equipment None Reported. Allergies No known drug allergies Medications Name Sig Start Date Stop Date Status Note LastModified by Organization Details LastModified Time Cytotec 200 mcg tablet insert 4 by by vagina route all at once 06/21 completed Prescribe d Elsewhere : No Locati on: [facility] By: marissa En counter DateTime: 8 01:15:00 PM Not Available Not Available Not Available Flagyl 500 mg tablet take 1 tablet by oral route every 12 hours 04/23 completed Prescribe d Elsewhere : No Locati on: [facility] By: nicole Encounte r DateTime: 9 08:30:00 AM Not Available Not Available Not Available escitalop troy 10 mg tablet TK 1 T PO D 02/26 completed Not Available Not Available Not Available 11/08 completed Not Available Not Available Not Available Gianvi (28) 3 mg-0.02 mg tablet TAKE 1 TABLET BY ORAL ROUTE EVERY DAY 11/11 completed Prescribe d Elsewhere : No Locati on: [facility] By: soto Encounte r DateTime: 4 01:31:41 PM Not Available Not Available Not Available Lomedia 24 Fe 1 mg-20 mcg (24)/75 mg (4) tablet take 1 tablet by oral route every day 01/04 completed Prescribe d Elsewhere : No Locati on: [facility] By: mark irvin DateTime: 4 10:45:00 AM Not Available Not Available Not Available Isibloom 0.15 mg-0.03 mg tablet take 1 tablet by oral route every day 02/26 completed Not Available Not Available Not Available Vitals Date Recorded Body height Body mass index (BMI) Body weight Systolic blood pressure Diastolic blood pressure Provider Name and Address Organization Details Last Updated DateTime 09/24/2020 179.07 cm 29.7 kg/m2 23697.39 77 g 127 mm[Hg] 81 mm[Hg] Cheyanne Hdz [facility] 1 16:16:23 Date Recorded Body height Body mass index (BMI) Body weight Systolic blood pressure Diastolic blood pressure Provider Name and Address Organization Details Last Updated DateTime 10/27/2020 179.07 cm 26.7 kg/m2 23300.96 g 133 mm[Hg] 79 mm[Hg] Cheyanne Hdz [facility] 1 11:23:05 Date Recorded Body height Body mass index (BMI) Body weight Systolic blood pressure Diastolic blood pressure Provider Name and Address Organization Details Last Updated DateTime 04/22/2021 179.07 cm 23.9 kg/m2 46530.11 g 118 mm[Hg] 75 mm[Hg] Cheyanne Hdz [facility] 2 15:02:59 Date Recorded Body height Body mass index (BMI) Body weight Systolic blood pressure Diastolic blood pressure Provider Name and Address Organization Details Last Updated DateTime 08/04/2022 179.07 cm 21.8 kg/m2 31221.22 g 126 mm[Hg] 76 mm[Hg] Cheyanne Hdz [facility] 3 10:35:05 Date Recorded Body weight Systolic blood pressure Diastolic blood pressure Provider Name and Address Organization Details Last Updated DateTime 11/09/2023 22851.96 g 124 mm[Hg] 81 mm[Hg] Peyton Iris [facility] 11/09/2023 16:11:15 Social History Question Answer Notes LastModified by Organizat ion Details LastModified Time Tobacco Smoking Status Former Smoker Cheyanne Hdz [facility], [facility] 02/27/2020 18:06:44 What Is Your Level Of Alcohol Consumption? Occasional [email or web address] Information not available 02/27/2020 If You Are , What Was Your Level Of Alcohol Consumption Prior To ? Occasional [email or web address] Information not available 06/18/2020 Are You Blind Or Do You Have Difficulty Seeing? No [email or web address] Information not available 06/18/2020 What Is Your Level Of Caffeine Consumption? Occasional [email or web address] Information not available 06/18/2020 In The 14 Days Before Symptom Onset, Have You Had Close Contact With A Laboratory-confir med COVID-19 While That Case Was Ill? No [email or web address] Information not available 06/18/2020 In The 14 Days Before Symptom Onset, Have You Had Close Contact With A Person Who Is Under Investigation For COVID-19 While That Person Was Ill? No Information not available 06/18/2020 Have You Been To An Area Known To Be High Risk For COVID-19? No Information not available 06/18/2020 Are You Deaf Or Do You Have Serious Difficulty Hearing? No [email or web address] Information not available 06/18/2020 What Type Of Diet Are You Following? REGULAR [email or web address] Information not available 06/18/2020 Do You Or Have You Ever Used E-cigarettes Or Vape? Never Used Electronic Cigarettes [email or web address] Information not available 02/27/2020 What Was The Date Of Your Most Recent Tobacco Screening? 04/22/2021 [email or web address] Information not available 04/22/2021 Have You Ever Been Counseled For Unhealthy Alcohol Use? No [email or web address] Information not available 06/18/2020 Do You Use Your Seat Belt Or Car Seat Routinely? Yes [email or web address] Information not available 06/18/2020 Do You Have Smoke And Carbon Monoxide Detectors In Your Home? Yes [email or web address] Information not available 06/18/2020 Do You Or Have You Ever Used Smokeless Tobacco? Never Used Smokeless Tobacco [email or web address] Information not available 02/27/2020 How Much Tobacco Do You Smoke? No [email or web address] Information not available 02/27/2020 Do You Feel Stressed (tense, Restless, Nervous, Or Anxious, Or Unable To Sleep At Night)? [id number] [email or web address] Information not available 06/18/2020 Do You Use Any Illicit Or Recreational Drugs? No [email or web address] Information not available 06/18/2020 Do You Use Sunscreen Routinely? Yes [email or web address] Information not available 06/18/2020 Has Tobacco Cessation Counseling Been Provided? No [email or web address] Information not available 06/18/2020 Do You Or Have You Ever Used Any Other Forms Of Tobacco Or Nicotine? No [email or web address] Information not available 06/18/2020 Sex: Unknown Functional Status Question Answer Note LastModified by Organizat ion Details LastModified Time Are you able to walk? YESWOREST [email or web address] Information not available 06/18/2020 What is your exercise level? Occasional [email or web address] Information not available 02/27/2020 Mental Status None recorded. Family History Relationship Description Onset Age of this Age Resolved Age Notes LastModified by Organization Details LastModified Time Father No current problems or disability [email or web address] Not available 03/16 10:29:50 Mother No current problems or disability [email or web address] Not available 03/16 10:29:50 Medical History Condition Response Allergies (Food, seasonal, environmental ) N Other N Breast Cancer N Drug/Latex Allergies/Reactions N Blood Transfusion N Dermatologic Disorders N Lung Disease N Defects or Inherited Disease N Breast Problem N Gestational Diabetes N Hematologic disorders N Anesthesia Complications N History of STI N Deep Vein Thrombosis N Polycystic ovary syndrome N Anxiety Disorder Y Autoimmune disease N Arthritis N Infertility N Polyps N Acid Reflux (GERD) N History of abnormal pap Y Cancer N Stroke N Varicosities N Neurologic/Epilepsy N Endometriosis N High Cholesterol N Headaches N Fibromyalgia N Kidney Disease N Heart Problems N Kidney or Bladder Problems N Thyroid Problems N GI Problems Y Eating Disorder N Anemia N Art (IVF or FET) N Psychiatric Illness N Ovarian Cancer N Diabetes N Pulmonary (TB, Asthma) N Hepatitis/Liver Disease N No Past Medical History N Eczema N Urinary Tract Infection N Abuse/Domestic Violence N Asthma N Trauma/Violence N Depression/ depression Y Heart Disease N Pre-Eclampsia N Hypertension N Osteoporosis N Thrombophilias N Gynecological History Statement/Question Response Abnormal Pap Y Flow Moderate Date of Last Mammogram Date of LMP 10/28/2023 STIs/STDs N HPV Vaccine N Colposcopy 01/01/2013 Current Control Method None Sexually Active? Y Menses Monthly Y Date of DEXA bone scan Date of Last Pap Smear 08/04/2022 Sexual Problems? N LMP Approximate Obstetrics History GPAL:G 3 P 2 0 1 2 Type Value Full Term 2 Spontaneous 1 Living 2 Total 3 Past Encounters Encounter ID Performer Location Encounter Start Date Encounter Closed Date Diagnosis/Indication Diagnosis SNOMED-CT Code Diagnosis ICD10 Code Diagnosis Note [id number] Buffy Palencia CNM [facility] [address],[place] [address] 02/27/2020 14:49:05 02/27/2020 16:00:12 Amenorrhea [id number] N91.2 [id number] [facility] [address],[place] [address] 02/27/2020 14:50:11 02/29/2020 15:10:27 [id number] [facility] [address],[place] [address] 03/26/2020 14:26:39 03/26/2020 15:15:03 screening [id number] Z36.82 [id number] Buffy Palencia [facility] [address],[place] [address] 03/26/2020 14:27:14 03/26/2020 16:20:32 Routine care [id number] Z34.90 [id number] [facility] [address],[place] [address] 04/13/2020 17:52:19 04/14/2020 08:54:17 [id number] Buffy Palencia [facility] [address],[place] [address] 04/23/2020 16:14:25 04/23/2020 16:47:11 Routine care [id number] Z34.90 [id number] Eliane Dougherty MD [facility] [address],[place] [address] 05/18/2020 14:51:39 05/20/2020 16:04:39 Routine care [id number] Z34.82 [id number] [facility] [address],[place] [address] 05/18/2020 14:53:59 05/20/2020 16:05:02 screening for malformation [id number] Z36.3 [id number] Buffy Palencia [facility] [address],[place] [address] 06/18/2020 16:08:59 06/18/2020 17:26:57 Routine care [id number] Z34.90 [id number] Buffy Palencia [facility] [address],[place] [address] 07/23/2020 16:01:08 07/25/2020 22:57:47 Routine care [id number] Z34.90 [id number] Buffy Palencia [facility] [address],[place] [address] 08/06/2020 16:07:03 08/06/2020 17:06:41 Routine care [id number] Z34.90 [id number] Buffy Palencia [facility] [address],[place] [address] 08/20/2020 15:25:40 08/20/2020 16:31:37 Routine care [id number] Z34.90 [id number] Maya Garza [facility] [address],[place] [address] 08/20/2020 15:25:14 08/20/2020 15:59:20 Uterine size for dates discrepancy 412727446 O26.843 Z3A.33 [id number] Buffy Palencia [facility] [address],[place] [address] 09/03/2020 16:19:33 09/04/2020 22:38:33 Routine care [id number] Z34.90 [id number] Buffy Palencia [facility] [address],[place] [address] 09/10/2020 16:04:47 09/10/2020 16:40:12 Routine care [id number] Z34.90 [id number] Eliane Dougherty MD [facility] [address],[place] [address] 09/17/2020 14:42:56 09/19/2020 22:30:06 Elevated blood-pressure reading without diagnosis of hypertension 352508770 R03.0 Routine an tenatal care [id number] Z34.82 [id number] Buffy Palencia [facility] [address],[place] [address] 09/24/2020 16:08:39 09/24/2020 16:36:28 Routine care [id number] Z34.90 [id number] Buffy Palencia [facility] [address],[place] [address] 10/27/2020 10:56:42 10/27/2020 11:42:29 care [id number] Z39.2 [id number] Buffy Palencia [facility] [address],[place] [address] 04/22/2021 14:54:10 04/22/2021 16:35:38 Gynecologic examination 53862257 Z01.419 Z11.51 [id number] Buffy Palencia [facility] [address],[place] [address] 08/04/2022 10:17:12 08/04/2022 10:49:39 Gynecologic examination 42651730 Z01.419 Z11.51 [id number] Buffy Palencia [facility] [address],[place] [address] 11/09/2023 16:04:18 11/09/2023 17:07:46 Gynecologic examination [id number] Z01.419 Z11.51 Health Concerns Section Related Observation LastModified by Organization Detai ls LastModified Time None Recorded Concern Status LastModified by Organization Details LastModified Time None Recorded Advance Directives Directive None Recorded Payers Encounter Date Sequence Insurance Name Policy Number Policy Ibrahim Covered Member ID Ibrahim Member ID Guarantor Name 09/24/2020 1 [employer] - CHOICE (POS II) [id number] Gaby lynch [id number] Gaby Mendoza 10/27/2020 1 [employer] - CHOICE (POS II) [id number] 04 Gaby lynch [id number] Gaby Mendoza 04/22/2021 1 [employer] - CHOICE (POS II) [id number] 04 Gaby lynch [id number] Gaby Mendoza 08/04/2022 1 [employer] - CHOICE (POS II) [id number] 04 Gaby lynch [id number] Gaby Mendoza 11/09/2023 1 [employer] - CHOICE (POS II) [id number] 04 Gaby lynch [id number] Gaby Mendoza Notes Date Note Type Note Provider Name and Address Organization Details Recorded Time 10/27/2020 text/html VisitReported bypatient.Quality:N Context:complicatio ns of : none; complications of labor: none; laceration: ; complications: none; feeding choice: breast and bottle; good support from partner/family Associated Symptoms:no abnormal bleeding; no vaginal discharge; no pelvic pain Contraception Plan:oral contraceptive pillNotes:discussed bcm options, stopping breast feeding soon plans on vasectomy denies anxiety or depression Buffy Palencia CNM [address], [place], [address], [facility] 10/27/2020 11:37:38 04/22/2021 text/html Annual GYNReport ed bypatient.Menstrual cycle:Normal menses Urinary symptoms:No hematuria; No incontinence Vulva:No genital lesion Vagina:Normal vaginal discharge Breast:No breast pain; No breast lump; No nipple discharge Sexual complaints:No sexual complaints; No pain during intercourse; Normal libido Menopausal Symptoms:No menopausal symptoms; Normal vaginal lubrication Psychological symptoms:No depression; No anxiety; No PMDD Preventive measures:Encourage self breast examination; Encourage regular exercise; Encourage no tobacco useNotes:declines bcm doing well Buffy Palencia CNM [address], [place], [address], [facility] 04/22/2021 16:31:59 08/04/2022 text/html Annual GYNReport ed bypatient.History:n o gynecologic complaints; no change in interval history Menstrual cycle:Normal menses Urinary symptoms:No hematuria; No incontinence Vulva:No genital lesion Vagina:Normal vaginal discharge Breast:No breast pain; No breast lump; No nipple discharge Current Contraception:Satis fied with current contraception; Partner had vasectomy Sexual complaints:No sexual complaints; No pain during intercourse; Normal libido Menopausal Symptoms:No menopausal symptoms; Normal vaginal lubrication Psychological symptoms:No depression; No anxiety; No PMDD Preventive measures:Encourage self breast examination; Encourage regular exercise; Encourage no tobacco use; Encourage regular mammograms starting age 40Notes:doing well, kids are doing well Buffy Palencia CNM [address], [place], [address], [facility] 08/04/2022 10:47:01 11/09/2023 text/html Annual GYNReport ed bypatient.History:n o gynecologic complaints Menstrual cycle:Normal menses Urinary symptoms:No hematuria; No incontinence Vulva:No genital lesion Vagina:Normal vaginal discharge Breast:No breast pain; No breast lump; No nipple discharge Current Contraception:decli emma Sexual complaints:No sexual complaints; No pain during intercourse; Normal libido Menopausal Symptoms:No menopausal symptoms; Normal vaginal lubrication Psychological symptoms:No depression; No anxiety; No PMDD Preventive measures:Encourage self breast examination; Encourage regular exercise; Encourage no tobacco use; Encourage regular mammograms starting age 40Notes:kids good oldest starting kindergarten! had breast thermography done Buffy Palencia CNM [address], [place], [address], [facility] 11/09/2023 17:01:27 OBGyn Episode Ob Episode Information Episode Created Date Number of Fetuses Patient Bloodtype Patient rh Status Prepregnancy Weight lbs Domestic Partner Domestic Partner Phone Father Name Industrial Aerial Installer Status 02/27/20 20 1 CLOSED Fetus Data First Name Last Name Admitted to NICU Weight (g) Sex Living Outcome Pediatric Complications Fetus ID Race Codes Race Delivery Type , Spontane ous [id number] Erich Calculation Initial Erich Date Initial Exam Date Initial Exam Provider Initial Ultrasound Date Last Menstrual Period Date Ultra Sound Weeks Gestation 0 Eighteen To Twenty Week Erich Update Ultra Sound Date Fundal Height At Umbil Quickening Date Ultra Sound Latest Weeks Gestation Final Erich Confirmed By Final Erich Confirmed Date Final Erich Date Ultra Sound Latest Days Gestation 0 0 Menstrual History Last Menstrual Date Menses Monthly On Bcp Conception Prior Menses Frequency Hcg Plus Date Menarche Onset Age Delivery Information Delivery Date Delivery Type Labor Anesthesia Weeks Gestation Incision Type Labor Labor Length Hrs Delivered By Post Complications Tubal Sterilization Discharge Date Comments 8 06/2017 miscarria ge Discharge Information Feeding Method Contraceptive Method Maternal HG B and HCT Levels Ob Episode Information Episode Created Date Number of Fetuses Patient Bloodtype Patient rh Status Prepregnancy Weight lbs Domestic Partner Domestic Partner Phone Father Name Industrial Aerial Installer Status 02/27/20 20 1 CLOSED Fetus Data First Name Last Name Admitted to NICU Weight (g) Sex Living Outcome Pediatric Complications Fetus ID Race Codes Race Delivery Type 4422.52 2 M Full Term [id number] Vaginal Delivery Erich Calculation Initial Erich Date Initial Exam Date Initial Exam Provider Initial Ultrasound Date Last Menstrual Period Date Ultra Sound Weeks Gestation 0 Eighteen To Twenty Week Erich Update Ultra Sound Date Fundal Height At Umbil Quickening Date Ultra Sound Latest Weeks Gestation Final Erich Confirmed By Final Erich Confirmed Date Final Erich Date Ultra Sound Latest Days Gestation 0 0 Menstrual History Last Menstrual Date Menses Monthly On Bcp Conception Prior Menses Frequency Hcg Plus Date Menarche Onset Age Delivery Information Delivery Date Delivery Type Labor Anesthesia Weeks Gestation Incision Type Labor Labor Length Hrs Delivered By Post Complications Tubal Sterilization Discharge Date Comments 9 40.1 Discharge Information Feeding Method Contraceptive Method Maternal HG B and HCT Levels Ob Episode Information Episode Created Date Number of Fetuses Patient Bloodtype Patient rh Status Prepregnancy Weight lbs Domestic Partner Domestic Partner Phone Father Name Industrial Aerial Installer Status 03/26/20 20 1 O Positive 171 shanika orourkest[address]ta leninsha CLOSED Fetus Data First Name Last Name Admitted to NICU Weight (g) Sex Living Outcome Pediatric Complications Fetus ID Race Codes Race Delivery Type 3798.83 3 F true Full Term 6575 Vaginal Delivery Erich Calculation Initial Erich Date Initial Exam Date Initial Exam Provider Initial Ultrasound Date Last Menstrual Period Date Ultra Sound Weeks Gestation 10/02/2020 03/26/[email or web address] 02/27/2020 12/26/2019 8 Eighteen To Twenty Week Erich Update Ultra Sound Date Fundal Height At Umbil Quickening Date Ultra Sound Latest Weeks Gestation Final Erich Confirmed By Final Erich Confirmed Date Final Erich Date Ultra Sound Latest Days Gestation 02/27/20 20 8 [email or web address] 07/23/2020 10/03/19 21 6 Pre- Flowsheet Flowsheet Date 02/27/2020 Alba Score Blood Edema Fundus Height Fundus Units Glucose Ketones Leukocytes Nitrite Labor Signs Protein Cervic Dilation Cervic Effacement Cervic Station Type Weight in lbs Pre/Post Dialysis Refused BP Diastolic BP Location Tested BP Systolic BP Type Fetus Heart Rate Present Fetus Movement Comments Flowsheet Date 03/26/2020 Alba Score Blood Edema Fundus Height Fundus Units Glucose Ketones Leukocytes Nitrite Labor Signs Protein Cervic Dilation Cervic Effacement Cervic Station Type Weight in lbs Pre/Post Dialysis Refused Weight 174.07075152974 BP Diastolic BP Location Tested BP Systolic BP Type 83 131 Fetus Heart Rate Present Fetus Movement Comments first uncomplicate d, hx of anxiety no medication, doing well, poc reviewed with pt and plan 4 week f/u, labs drawn today Flowsheet Date 04/13/2020 Alba Score Blood Edema Fundus Height Fundus Units Glucose Ketones Leukocytes Nitrite Labor Signs Protein Cervic Dilation Cervic Effacement Cervic Station Type Weight in lbs Pre/Post Dialysis Refused BP Diastolic BP Location Tested BP Systolic BP Type Fetus Heart Rate Present Fetus Movement Comments Flowsheet Date 04/23/2020 Alba Score Blood Edema Fundus Height Fundus Units Glucose Ketones Leukocytes Nitrite Labor Signs Protein Cervic Dilation Cervic Effacement Cervic Station neg none trace Type Weight in lbs Pre/Post Dialysis Refused Weight 181.978080594423 BP Diastolic BP Location Tested BP Systolic BP Type 76 130 Fetus Heart Rate Present A 145 Fetus Movement A Yes Comments doing well, blood work today plan anatomy 3-4 weeks Flowsheet Date 05/18/2020 Alba Score Blood Edema Fundus Height Fundus Units Glucose Ketones Leukocytes Nitrite Labor Signs Protein Cervic Dilation Cervic Effacement Cervic Station Type Weight in lbs Pre/Post Dialysis Refused BP Diastolic BP Location Tested BP Systolic BP Type Fetus Heart Rate Present Fetus Movement Comments Flowsheet Date 05/18/2020 Alba Score Blood Edema Fundus Height Fundus Units Glucose Ketones Leukocytes Nitrite Labor Signs Protein Cervic Dilation Cervic Effacement Cervic Station neg none trace Type Weight in lbs Pre/Post Dialysis Refused Weight 182.675368081237 BP Diastolic BP Location Tested BP Systolic BP Type 71 111 Fetus Heart Rate Present A 145 Fetus Movement A Yes Comments Doing very well. Anatomy US today complete and wnl. Does have EIF. Discussed with pt- she declines FU US, seems to have medical background. Visit was unfortunately very short due to my leaving for a delivery. Pt encouraged to call with questions. Flowsheet Date 06/18/2020 Alba Score Blood Edema Fundus Height Fundus Units Glucose Ketones Leukocytes Nitrite Labor Signs Protein Cervic Dilation Cervic Effacement Cervic Station neg trace 23 trace Type Weight in lbs Pre/Post Dialysis Refused Weight 190.972776831778 BP Diastolic BP Location Tested BP Systolic BP Type 70 118 Fetus Heart Rate Present A 145 Present Fetus Movement A Yes Comments patient is having some contr actions, selling, and constipation, miralax for constipation, doing well, gct at next visit Flowsheet Date 07/23/2020 Alba Score Blood Edema Fundus Height Fundus Units Glucose Ketones Leukocytes Nitrite Labor Signs Protein Cervic Dilation Cervic Effacement Cervic Station neg trace 28 trace Type Weight in lbs Pre/Post Dialysis Refused Weight 195.498064473908 BP Diastolic BP Location Tested BP Systolic BP Type 72 128 Fetus Heart Rate Present A 144 Present Fetus Movement A Yes Comments PATIENT STATES THAT HAVING S OME SWELLING, reviewed precautions gct today, doing well, f/u 2 weeks Flowsheet Date 08/06/2020 Alba Score Blood Edema Fundus Height Fundus Units Glucose Ketones Leukocytes Nitrite Labor Signs Protein Cervic Dilation Cervic Effacement Cervic Station neg none 29 trace Type Weight in lbs Pre/Post Dialysis Refused Weight 199.491356023530 BP Diastolic BP Location Tested BP Systolic BP Type 80 122 Fetus Heart Rate Present A 144 Fetus Movement A Yes Comments size less than dates, plan u s next visit, doing well, precautions reviewed, schedule preadmit Flowsheet Date 08/20/2020 Alba Score Blood Edema Fundus Height Fundus Units Glucose Ketones Leukocytes Nitrite Labor Signs Protein Cervic Dilation Cervic Effacement Cervic Station Type Weight in lbs Pre/Post Dialysis Refused BP Diastolic BP Location Tested BP Systolic BP Type Fetus Heart Rate Present Fetus Movement Comments Flowsheet Date 08/20/2020 Alba Score Blood Edema Fundus Height Fundus Units Glucose Ketones Leukocytes Nitrite Labor Signs Protein Cervic Dilation Cervic Effacement Cervic Station neg none trace Type Weight in lbs Pre/Post Dialysis Refused Weight 200.739224473242 BP Diastolic BP Location Tested BP Systolic BP Type 74 121 Fetus Heart Rate Present Fetus Movement A Yes Comments PATIENT STATES THAT HAVING C RAMPING AND SWELLING EFW 54%, doing well, precautions reviewed gbs next visit Flowsheet Date 09/03/2020 Alba Score Blood Edema Fundus Height Fundus Units Glucose Ketones Leukocytes Nitrite Labor Signs Protein Cervic Dilation Cervic Effacement Cervic Station neg trace 36 trace Type Weight in lbs Pre/Post Dialysis Refused Weight 205.205565775922 BP Diastolic BP Location Tested BP Systolic BP Type 80 132 Fetus Heart Rate Present A 155 Fetus Movement A Yes Comments PATIENT IS HAVING SWELLING A ND NAUSEA, doing well precautions reviewed, gbs done Flowsheet Date 09/10/2020 Alba Score Blood Edema Fundus Height Fundus Units Glucose Ketones Leukocytes Nitrite Labor Signs Protein Cervic Dilation Cervic Effacement Cervic Station neg none 36 cm trace Type Weight in lbs Pre/Post Dialysis Refused Weight 207.196035164948 BP Diastolic BP Location Tested BP Systolic BP Type 78 127 Fetus Heart Rate Present A 157 Present Fetus Movement A Yes Comments PATIENT IS HAVING PAIN, CONT RACTIONS, SWELLING AND NAUSEA, precautions reviewed declined cervical exam f/u one week Flowsheet Date 09/17/2020 Alba Score Blood Edema Fundus Height Fundus Units Glucose Ketones Leukocytes Nitrite Labor Signs Protein Cervic Dilation Cervic Effacement Cervic Station neg trace 39 trace Type Weight in lbs Pre/Post Dialysis Refused Weight 207.121740889980 BP Diastolic BP Location Tested BP Systolic BP Type 84 145 82 140 Fetus Heart Rate Present A 140 Fetus Movement A Yes Comments Doing fine except work has b een insane. BPs both mildly elevated. Will send to [facility] for monitoring, labs, possible delivery if stay elevated. GBS pos. Flowsheet Date 09/24/2020 Alba Score Blood Edema Fundus Height Fundus Units Glucose Ketones Leukocytes Nitrite Labor Signs Protein Cervic Dilation Cervic Effacement Cervic Station neg trace trace 1cm 50% -3 Type Weight in lbs Pre/Post Dialysis Refused Weight 210.082512634595 BP Diastolic BP Location Tested BP Systolic BP Type 81 127 Fetus Heart Rate Present A 155 Fetus Movement A Yes Comments PATIENT STATES THAT HAVING S OME SWELLING, precautions reviewed, IOL scheduled 10/02 Menstrual History Last Menstrual Date Menses Monthly On Bcp Conception Prior Menses Frequency Hcg Plus Date Menarche Onset Age 0912/26/2019 true false 12/26/2019 Genetic Screening And Infection History Question Response Note Mental Retardation/Autism false Patient's Age Will Be 35 Yea rs Or Older At Estimated Date of Delivery false Thalassemia (Kyrgyz, Ukrainian, Mediterranean, Or Background): MCV < 80 false Neural Tube Defect (Meningomyelocele, Spina Bifi da, Or Anencephaly) false Congenital Heart Defect false Down Syndrome false Oj-Sachs (eg, Hindu, Cajun, Mohawk-Austrian) f alse Babak Disease false Sickle Cell Disease Or Trait () false Hemophilia Or Other Blood Disorders false Muscular Dystrophy false Cystic Fibrosis false Marti's Chorea false Intellectual Disability/Autism false If Yes, Was Person Tested For Fragile X? false Other Inherited Genetic Or Chromosomal Disorder false Maternal Metabolic Disorder (eg, Type 1 Diabetes , PKU) false Patient Or Baby's Father Had A Child With Defects Not Listed Above false Recurrent Loss, Or A Stillbirth false Medications (including Suppl ements, Vitamins, Herbs, OTC Drugs), Illicit/Recreational Drugs, Alcohol true If Yes, Agent(s) And Strength/Dosage false Any Other Genetic History false Live With Someone With TB Or Exposed To TB false Patient Or Partner Has History Of Genital Herpes false Rash Or Viral Illness Since Last Menstrual Perio d false History Of STD, Gonorrhea, Chlamydia, HPV, Syphi lis false Other Infection History false History of HIV false History of Hepatitis false Prior GBS-infected child false Hemoglobinopathy Or Carrier false Other Structural Defect false Recent Travel History Outside of Country false Delivery Information Delivery Date Delivery Type Labor Anesthesia Weeks Gestation Incision Type Labor Labor Length Hrs Delivered By Post Complications Tubal Sterilization Discharge Date Comments 1 Induce d Regional-Ep idural 39.6 false Buffy Palencia CNM [facility] Discharge Information Feeding Method Contraceptive Method Maternal HG B and HCT Levels
== END 2024-05-07 14:38 | disposition home or self-care (01) ==
PROVIDERS: PCP Family Medicine; Visit Provider Physician Assistant Medical
DX: R07.89 Other chest pain (principal); R00.2 Palpitations
CPT/HCPCS: 93242